=== PATIENT | female | born 1950 | race Caucasian/White ===

== ENCOUNTER 2018-02-18 20:00 | Emergency (ER) | payer MEDICARE ==
[~2018-02-18] VITALS: Ht 170.2 cm; Wt 79.4 kg
[~2018-02-18 20:00] MED LIST: ATOR20TA PO; CITA20TA9 PO; DILT180C PO; FAMO20TA5 PO; INSU100V5 IJ; INSU100V8 SQ; LEVO88TA5 PO
[2018-02-18 20:25] VITALS: BP 173/74
[2018-02-18] MEDS ORDERED: TRIPLE ANTIBIOTIC OINTMENT TP ONE (20:42)
[2018-02-18 21:20] LABS: BILIRUBIN,URINE NEGATIVE (NEGATIVE); UROBILINOGEN,URINE NORMAL (NEGATIVE)
--- NOTE | 2018-02-18 21:20 | ER.PDOC ---
General Chief Complaint: General Complaint Stated Complaint: HIGH BLOOD SUGAR TRAVEL OUT OF US: Yes Time seen by MD: 21:00 Source: patient, family Exam Limitations: no limitations History of Present Illness Initial Comments 67 year old white female with high blood sugar readings. Claims that she is under stress from numerous phone calls that she is getting. Blood sugar runs around 200-210. No fever, no nausea and no vomiting. Timing/Duration: 24 hours Severity: mild Associated Symptoms: other (disoriented) Allergies: Coded Allergies: No Known Allergies (Unverified , 07/29/15) Home Meds Reported Medications Levothyroxine Sodium (LEVOTHYROXINE SODIUM) 88 Mcg Tablet, 1 TAB PO DAILY, #30 TAB 5 Refills 07/29/15 Insulin Glargine,Hum.rec.anlog (LANTUS) 100 Unit/1 Ml Vial, 25 UNIT SQ BID, VIAL 07/29/15 Insulin Regular, Human (HUMULIN R) 100 Unit/1 Ml Vial, 1 UNIT IJ ACHS PRN for HYPERGLYCEMIA, VIAL 07/29/15 Famotidine (FAMOTIDINE) 20 Mg Tablet, 20 MG PO DAILY, TABLET 07/29/15 Diltiazem Hcl (DILTIAZEM 24HR ER) 180 Mg Cap.er.24h, 1 CAP PO DAILY, #30 CAP 5 Refills 07/29/15 Citalopram Hydrobromide (CELEXA) 20 Mg Tablet, 1 TAB PO DAILY, #90 TAB 3 Refills 07/29/15 Atorvastatin 20MG (LIPITOR 20MG) 20 Mg Tablet, 1 TAB PO DAILY, #90 TAB 1 Refill 07/29/15 Past Medical History Medical History: diabetes, hypertension Surgical History: hysterectomy LMP (females 10-50): hysterectomy Social History Smoking: non-smoker Alcohol Use: none Drug Use: none Review of Systems Constitutional: weakness EENTM: no symptoms reported Respiratory: no symptoms reported Cardiovascular: no symptoms reported Gastrointestinal: no symptoms reported Genitourinary: other (foul smelling urine) Musculoskeletal: no symptoms reported Skin: no symptoms reported Psychiatric/Neurological: anxiety, other (disoriented) Hematologic/Lymphatic: no symptoms reported Immunological/Allergic: no symptoms reported Physical Exam General Appearance: No Apparent Distress, WD/WN EENT: eyes nml inspection, nml ENT inspection, pharynx nml Neck: Non-Tender, Full Range of Motion, Supple, Normal Inspection Respiratory: chest non-tender, lungs clear, normal breath sounds, no respiratory distress, no accessory muscle use CVS: reg rate & rhythm, no murmur, no gallop, pulses nml, nml capillary refill Gastrointestinal: Normal Bowel Sounds, No Organomegaly, No Pulsatile Mass, Non Tender Back: Normal Inspection, No CVA Tenderness Extremities: Normal Range of Motion, Non-Tender, Normal Inspection, No Pedal Edema 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: 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 NML as Tested, No Motor/Sensory Deficits, Alert, Normal Mood/Affect, Oriented x 3 Skin: Normal Color, Warm/Dry Lymphatic: No Adenopathy Results/Orders Results/Orders Laboratory Tests Test 02/18/18 00:00 Urine Collection Type UNKNOWN Urine Color ZARI (YELLOW) Urine Appearance CLOUDY (CLEAR) Urine Bilirubin NEGATIVE MG/DL (NEGATIVE) Urine Ketones NEGATIVE (NEGATIVE) Urine Specific [place] 1.015 (1.005-1.035) Urine pH 5 (5.0-6.0) Urine Protein 30 mg/dL (NEGATIVE) Urine Urobilinogen NORMAL (NEGATIVE) Urine Nitrate NEGATIVE (NEGATIVE) Urine Leukocyte Esterase 25 /uL TRACE (NEGATIVE) Urine Blood 250 4+ (NEGATIVE) Urine RBC TNTC RBC/HPF (NONE SEEN) Urine WBC 5-10 WBC/HPF (0-2) Urine Squamous Epithelial Cells FEW #/HPF (FEW) Urine Bacteria FEW (NONE SEEN) Urine Glucose NORMAL (NEGATIVE) Course Sepsis Screening Results: Posi: POSITIVE SEPSIS RISK Vitals & review Data Vital Sign - Last 24 Hours 02/18/18 02/18/18 02/18/18 20:20 20:20 20:25 Temp 100.5 100.5 100.5 Pulse 98 98 98 Resp 20 18 20 B/P (MAP) 173/74 (107) Pulse Ox 95 95 O2 Delivery Room Air Room Air Laboratory Tests Test 02/18/18 00:00 Urine Collection Type UNKNOWN Urine Color ZARI Urine Appearance CLOUDY Urine Bilirubin NEGATIVE MG/DL Urine Ketones NEGATIVE Urine Specific [place] 1.015 Urine pH 5 Urine Protein 30 mg/dL Urine Urobilinogen NORMAL Urine Nitrate NEGATIVE Urine Leukocyte Esterase 25 /uL TRACE Urine Blood 250 4+ Urine RBC TNTC RBC/HPF Urine WBC 5-10 WBC/HPF Urine Squamous Epithelial Cells FEW #/HPF Urine Bacteria FEW Urine Glucose NORMAL Departure Time of Disposition: 21:35 Disposition: 01 HOME, SELF-CARE Impression: Primary Impression: Urinary tract infection Qualified Codes: N30.00 - Acute cystitis without hematuria Condition: Stable Referrals: GIGI BURR MD (PCP) PRIMARY CARE PROVIDER Additional Instructions: Maintain po intake RTER prn Follow up PCP Cranberry juice Macrodantin Duration or Time Spent with Pa: 30 DANIELLA SOTELO MD February 18, 2018 21:20
[2018-02-18 21:27] LABS: APPEARANCE,URINE CLOUDY (CLEAR); UA COLOR AMBER (YELLOW)
[2018-02-18] MEDS ORDERED: MACROBID PO STA (21:34)
[2018-02-18] MEDS ORDERED: MACROBID ONE (21:37)
[2018-02-18 22:00] VITALS: BP 173/74
== END 2018-02-18 21:54 | disposition home or self-care (01) ==
LOC: ER 20:00
DX: N39.0 Urinary tract infection, site not specified (principal); E11.65 Type 2 diabetes mellitus with hyperglycemia; F41.9 Anxiety disorder, unspecified; I10 Essential (primary) hypertension; Z79.4 Long term (current) use of insulin; Z90.710 Acquired absence of both cervix and uterus; Z79.899 Other long term (current) drug therapy
CPT/HCPCS: 81000; 82948; 87086; 99284

== ENCOUNTER 2019-11-29 21:04 | Emergency (ER) | payer MEDICARE ==
[~2019-11-29] VITALS: Ht 170.2 cm; Wt 79.4 kg
[2019-11-29] VITALS (8 sets, daily range): BP systolic 105–167; BP diastolic 52–80
[~2019-11-29 21:04] MED LIST changes: -DILT180C PO; +[UNRECOGNIZED DRUG - CODE] PO
--- NOTE | 2019-11-29 21:05 | NUR ---
ARRIVAL PATIENT PRESENTS VIA AMBULANCE WITH REPORTS OF AMS PER EMS. EMS REPORT THAT PATIENT WAS FOUND LYING ON THE BATHROOM FLOOR BY HER . EMS REPORT THAT STATED HE WAS ASLEEP AND DOES NOT KNOW HOW LONG SHE WAS ON THE FLOOR.
--- NOTE | 2019-11-29 21:15 | NUR ---
C-COLLAR MD CATIA AT BEDSIDE. C-COLLAR REMOVED BY DR BARDALES.
--- NOTE | 2019-11-29 21:28 | ER.PDOC ---
General Chief Complaint: Requesting Medical Care Stated Complaint: ALOC Time seen by MD: 21:15 Source: patient, family Exam Limitations: clinical condition History of Present Illness Initial Comments Spouse states he heard a crash in the bathroom, pt stated she is "OK, I just bumped my head." Spouse went to check on her and found her on floor, altered mental status with confusion, unable to answer questions. No obvious trauma. Timing/Duration: 1 hour Character of AMS: confused, decreased responsiveness Usually: orientedx3 Decreased Ability to Stand: weak, cannot walk Prior symptoms/Treatment: No Similar symptoms previous, No Recenly Seen, No Treated by Doctor, No Recently Hospitalized Allergies: Coded Allergies: No Known Allergies (Unverified , 07/29/15) Home Meds Reported Medications Levothyroxine Sodium (LEVOTHYROXINE SODIUM) 88 Mcg Tablet, 1 TAB PO DAILY, #30 TAB 5 Refills 07/29/15 Insulin Glargine,Hum.rec.anlog (LANTUS) 100 Unit/1 Ml Vial, 25 UNIT SQ BID, VIAL 07/29/15 Insulin Regular, Human (HUMULIN R) 100 Unit/1 Ml Vial, 1 UNIT IJ ACHS PRN for HYPERGLYCEMIA, VIAL 07/29/15 Famotidine (FAMOTIDINE) 20 Mg Tablet, 20 MG PO DAILY, TABLET 07/29/15 Diltiazem Hcl (DILTIAZEM 24HR ER) 180 Mg Cap.er.24h, 1 CAP PO DAILY, #30 CAP 5 Refills 07/29/15 Citalopram Hydrobromide (CELEXA) 20 Mg Tablet, 1 TAB PO DAILY, #90 TAB 3 Refills 07/29/15 Atorvastatin 20MG (LIPITOR 20MG) 20 Mg Tablet, 1 TAB PO DAILY, #90 TAB 1 Refill 07/29/15 Past Medical History Medical History: diabetes, GERD, high cholesterol, hypertension Surgical History: hysterectomy Social History Drug Use: none Review of Systems Constitutional: no symptoms reported Eyes: no symptoms reported Ears, Nose, Mouth, Throat: no symptoms reported Respiratory: no symptoms reported Cardiovascular: no symptoms reported Gastrointestinal: no symptoms reported Genitourinary: no symptoms reported Musculoskeletal: no symptoms reported Skin: no symptoms reported Psychiatric/Neurological: no symptoms reported Endocrine: no symptoms reported Hematologic/Lymphatic: no symptoms reported Physical Exam General Appearance: mild distress, other (Somnolent but arousable.) HEENT: no apparent trauma, EOM's intact, no nystagmus, PERRL, ENT inspection nml, pharynx nml, airway intact, oral exam nml Neuro/Psych: abnml response to command Cranial Nerves: nml as tested Peripheral Exam: motor nml, sensation nml, reflexes nml Neck: supple, non-tender, no carotid bruit Respiratory: no resp distress, breath sounds nml CVS: reg rate & rhythm, heart sounds nml Abdomen: non-tender, no organomegaly, no distention Skin: color nml, no rash, warm/dry Extremities: non-tender, nml ROM, no pedal edema Results/Orders Results/Orders Orders - GIGI BARDALES MD Cbc With Auto Diff (11/29/19 21:25) Comprehensive Metabolic Panel (11/29/19 21:25) Creatine Kinase (11/29/19 21:25) Creatine Kinase Mb (11/29/19 21:25) PT (11/29/19 21:25) Partial Thromboplastin Time. (11/29/19 21:25) Xr Chest 1v (11/29/19 21:25) Urinalysis (11/29/19 21:25) Ekg-Routine (11/29/19 21:25) Troponin I (11/29/19 21:25) Saline Lock (11/29/19 21:25) Ct Head Wo Contrast (11/29/19 21:25) Promethazine Hcl (Phenergan) (11/29/19 22:19) 0.9 % Sodium Chloride (Ns 25ml) (11/29/19 22:21) 0.9 % Sodium Chloride (Ns 1000ml) (11/29/19 23:00) Vital Signs Date Time Temp Pulse Resp B/P (MAP) Pulse Ox O2 Delivery O2 Flow Rate FiO2 11/29/19 21:05 98.6 80 18 11/29/19 21:05 98.6 80 16 153/59 (90) 96 Room Air 11/29/19 21:05 98.6 80 16 96 Administered Medications Medications (Trade) Dose Ordered Sig/Lianet Route PRN Reason Start Time Stop Time Status Last Admin Dose Admin Promethazine HCl (Phenergan) 12.5 mg STAT STAT IV 11/29/19 22:19 11/29/19 22:20 UNV 11/29/19 22:25 12.5 MG Sodium Chloride 1,000 ml @ 0 mls/hr Q0M ONCE IV 11/29/19 23:00 11/29/19 23:01 UNV 11/29/19 23:10 1,000 MLS/HR Laboratory Tests Test 11/29/19 21:34 White Blood Count 10.6 10^3/uL (4.5-11.0) Red Blood Count 4.17 10^6/uL (4.00-5.20) Hemoglobin 12.6 g/dL (12.0-15.0) Hematocrit 37.5 % (36.0-46.0) Mean Corpuscular Volume 89.9 fL (78-100) Mean Corpuscular Hemoglobin 30.2 pg (26-34) Mean Corpuscular Hemoglobin Concent 33.6 g/dL (33-36.5) Red Cell Distribution Width 13.0 % (11.5-14.5) Platelet Count 226 10^3/uL (150-400) Mean Platelet Volume 10.6 fL (7.8-11.0) Neutrophils (%) (Auto) 70.8 % (41.0-85.0) Lymphocytes (%) (Auto) 13.0 % (24.0-44.0) L Monocytes (%) (Auto) 15.2 % (5.0-12.0) H Neutrophils # (Auto) 7.5 10^3/uL (1.8-7.7) Lymphocytes # (Auto) 1.38 10^3/uL1 (1.0-4.8) Monocytes # (Auto) 1.6 10^3/uL (0.3-0.8) H Absolute Immature Granulocyte (auto 0.07 10^3 u/L (0-2) Absolute Eosinophils (auto) 0.0 10^3/uL (0.0-0.2) Immature Granulocytes % 0.70 % (0.00-0.50) H Eosinophils % 0.0 % (0.0-5.0) Basophils % 0.3 % (0.0-0.2) H Basophils # 0.0 10^3/uL (0.0-0.1) Prothrombin Time 10.7 SEC (9.4-11.5) Prothrombin Time INR (Non-Therap) 1.1 Activated Partial Thromboplast Time 25.6 SEC (24.67-30.72) Sodium Level 130 mmol/L (132-145) #L Potassium Level 3.8 mmol/L (3.6-5.2) Chloride Level 98.0 mmol/L (96-109) Carbon Dioxide Level 24.1 mmol/L (20.0-32) Anion Gap 11.7 Blood Urea Nitrogen 18 mg/dL (7-18) Creatinine 1.23 mg/dL (0.59-1.40) Estimated GFR () 52.2 (>/=60) Est GFR (CKD-EPI)(Non-Afr [place]) 43.2 (>/=60) BUN/Creatinine Ratio 14.0 Glucose Level 93 mg/dL (70-110) Calcium Level 8.5 mg/dL (8.4-10.5) Total Bilirubin 0.5 mg/dL (0.2-1.0) Aspartate Amino Transferase (AST) 36 U/L (0-35) H Alanine Aminotransferase (ALT) 14 U/L (12-78) Alkaline Phosphatase 99 U/L (50-136) Total Creatine Kinase 56 U/L (26-192) Creatine Kinase MB 0.7 ng/mL (0.5-3.6) Troponin I < 0.02 ng/mL (0.00-0.05) Total Protein 6.1 g/dL (6.4-8.2) L Albumin 3.1 g/dL (3.4-5.0) L Globulin 3.0 EKG/XRAY/CT/US XRAY: chest XRAY Comments: normal CT Comments: L subdural hematoma with mild midline shift. Departure Time of Disposition: 23:37 Disposition: 70 DISC/XFER TO [facility] Impression: Primary Impression: Subdural hematoma Condition: Stable If Transfer, List PT Destinati: [facility] Referrals: GIGI BURR MD (PCP) PRIMARY CARE PROVIDER Duration or Time Spent with Pa: GIGI WALTERS MD Nov 29, 2019 21:28
--- NOTE | 2019-11-29 21:38 | PCM.EKG ---
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
--- NOTE | 2019-11-29 21:48 | NUR ---
CT PATIENT IS BEING TAKEN TO CT. NO SIGNS OF DISTRESS NOTED.
[2019-11-29 21:51] LABS: BASOPHIL % 0.3 % (0.0-0.2); LYMPHOCYTES # 1.38 10^3/uL1 (1.0-4.8); MEAN CORP HGB 30.2 pg (26-34); MONOCYTES # 1.6 10^3/uL (0.3-0.8); MONOCYTES % 15.2 % (5.0-12.0); NEUTROPHIL # 7.5 10^3/uL (1.8-7.7); NEUTROPHILS % 70.8 % (41.0-85.0); PLATELET COUNT 226 10^3/uL (150-400)
--- NOTE | 2019-11-29 22:00 | NUR ---
CT RN CALLED TO CT DUE TO PATIENT VOMITING AND INABLITY TO DO CT AT THIS TIME. PATIENT TAKEN BACK TO ER 2 AND MD CATIA NOTIFIED.
[2019-11-29 22:04] LABS: ALANINE AMINOTRANSFERASE(ML) 14 U/L (12-78); ALKALINE PHOSPHATASE 99 U/L (50-136); ASPARTATE AMINO TRANSFERASE 36 U/L (0-35); CALCIUM 8.5 mg/dL (8.4-10.5); CARBON DIOXIDE 24.1 mmol/L (20.0-32); GLUCOSE 93 mg/dL (70-110)
[2019-11-29] MEDS ORDERED: PHENERGAN IV STA (22:19)
[2019-11-29] MEDS ORDERED: NS 25ML 25 ML IV ONE (22:21)
[2019-11-29] MEDS ORDERED: PHENERGAN ONE (22:21)
--- NOTE | 2019-11-29 22:50 | NUR ---
CT PATIENT IS BEING TAKEN TO CT.
[2019-11-29] MEDS ORDERED: NS 1000ML 1,000 ML IV ONE (23:00)
--- NOTE | 2019-11-29 23:03 | NUR ---
CT PATIENT IS BACK FROM CT.
[2019-11-29] MEDS ORDERED: NS 1000ML 1,000 ML ONE (23:04)
--- NOTE | 2019-11-29 23:17 | DIREP ---
PROCEDURE:CHEST 1 VIEW COMPARISON:None. INDICATIONS:Altered mental status, fall FINDINGS: LUNGS/PLEURA:Blunting of left costophrenic angle VASCULATURE:Normal. Unremarkable pulmonary vasculature. CARDIAC:Normal. No cardiac silhouette abnormality or cardiomegaly. MEDIASTINUM: There is atherosclerotic aortic calcium. BONES:Normal. No fracture or visible bony lesion. OTHER:Negative. CONCLUSION: 1. Blunting of left costophrenic angle suggesting a small left pleural effusion. Dictated by: Anuj Ashley Jr. on 11/29/2019 at 11:15 PM
--- NOTE | 2019-11-29 23:22 | DIREP ---
PROCEDURE:CT HEAD OR BRAIN W/O CONTRAST COMPARISON:None. INDICATIONS:altered mental status, fall TECHNIQUE:CT images were created without intravenous contrast. FINDINGS: VENTRICLES:The ventricles are normal in size and configuration. CEREBRUM:Normal cerebral morphology with appropriate melgoza white matter differentiation. CEREBELLUM:Negative. BRAINSTEM:Negative. BASAL CISTERNS:Negative. HEMORRHAGE:1 cm thick left subdural hematoma with 4-5 mm [id number] midline shift. There is also blood along the tentorium MASS LESION:No ACUTE INFARCT:No SKULL:Normal. SINUSES:Normal. OTHER:None CONCLUSION: 1. Acute-appearing Left-sided subdural hematoma with mild midline shift. Dr. Tafoya is aware Dictated by: Anuj Ashley Jr. on 11/29/2019 at 11:18 PM
--- NOTE | 2019-11-29 23:28 | NUR ---
[facility] DR BARDALES ON PHONE WITH [facility].
[2019-11-30] VITALS: BP 158/68
[2019-11-30 00:15] VITALS: BP 164/63
[2019-11-30 00:30] VITALS: BP 157/55
--- NOTE | 2019-11-30 00:30 | NUR ---
REPORT REPORT GIVEN TO MICHELLE FRAGA WITH [facility]. ALL QUESTIONS ANSWERED. PATIENT STABLE AT TIME OF HANDOFF.
--- NOTE | 2019-11-30 00:48 | NUR ---
REPORT REPORT GIVEN TO NIYAH HYLTON AT [facility]. ALL QUESTIONS ANSWERED.
== END 2019-11-30 00:30 | disposition other institution (70) ==
LOC: EDBD 21:04 → ER 21:04
DX: S06.5X9A Traumatic subdural hemorrhage with loss of consciousness of unspecified duration, initial encounter (principal); E78.00 Pure hypercholesterolemia, unspecified; K21.9 Gastro-esophageal reflux disease without esophagitis; I10 Essential (primary) hypertension; E11.9 Type 2 diabetes mellitus without complications; R41.0 Disorientation, unspecified; Z79.4 Long term (current) use of insulin; Z79.899 Other long term (current) drug therapy; Z90.710 Acquired absence of both cervix and uterus; W22.8XXA Striking against or struck by other objects, initial encounter; Y93.89 Activity, other specified; Y92.89 Other specified places as the place of occurrence of the external cause; Y99.8 Other external cause status
CPT/HCPCS: 36415; 70450; 71045; 80053; 82550; 82553; 84484; 85025; 85610; 85730; 93005; 96361; 96374; 99285; J2550; J7030

== ENCOUNTER → 2020-01-06 | Outpatient (CLI) | payer MEDICARE ==
--- NOTE | 2020-01-06 09:53 | DIREP ---
PROCEDURE:CT HEAD WITHOUT CONTRAST TECHNIQUE:Axial cuts were obtained through the head, without intravenous contrast material. The images were viewed at brain and bone settings. COMPARISON:[facility], CT, CT HEAD BRAIN W/O CONTRAST, 11/29/2019, 09:59 PM. INDICATIONS:FOLLOW UP ON SUBDURAL HOMORRHAGE FINDINGS: VENTRICLES:Normal. CEREBRUM:Hyperdense meninges frontoparietal left, deep to the craniotomy site. Scant extra-axial fluid deep to the craniotomy site 6 mm in depth. No significant cortical effacement. No shift of the midline. CEREBELLUM:Normal. BRAINSTEM:Normal. SKULL:Left frontoparietal craniotomy SINUSES:Normal. OTHER:Negative. CONCLUSION:Status post left frontoparietal craniotomy and evacuation of subdural. No new hemorrhage. 6 mm extra-axial fluid collection at the site of the craniotomy without shift of the midline . Dictated by: Mellissa Quiroga MD on 01/06/2020 at 09:47 AM
== END | disposition home or self-care (01) ==
LOC: RAD 09:08
PROVIDERS: ATTEND Neurological Surgery
DX: I62.00 Nontraumatic subdural hemorrhage, unspecified (principal)
CPT/HCPCS: 70450

== ENCOUNTER → 2020-02-04 | Outpatient (CLI) | payer MEDICARE ==
[2020-02-04 18:22] LABS: BASOPHIL % 0.3 % (0.0-0.2); EOSINOPHIL # 0.1 10^3/uL (0.0-0.2); EOSINOPHIL % 0.9 % (0.0-5.0); LYMPHOCYTES # 2.13 10^3/uL1 (1.0-4.8); LYMPHOCYTES % 27.4 % (24.0-44.0); MONOCYTES # 0.8 10^3/uL (0.3-0.8); NEUTROPHIL # 4.8 10^3/uL (1.8-7.7); NEUTROPHILS % 61.1 % (41.0-85.0); PLATELET COUNT 199 10^3/uL (150-400); RED CELL DISTRIBUTION WIDTH 14.1 % (11.5-14.5)
[2020-02-05 11:04] LABS: CALCIUM 6.1 mg/dL (8.4-10.5); CARBON DIOXIDE 27.6 mmol/L (20.0-32)
== END | disposition home or self-care (01) ==
LOC: NPLAB 16:46
PROVIDERS: ATTEND Nurse Practitioner
DX: R19.7 Diarrhea, unspecified (principal); E11.65 Type 2 diabetes mellitus with hyperglycemia; E03.9 Hypothyroidism, unspecified; R10.9 Unspecified abdominal pain
CPT/HCPCS: 36415; 80053; 82150; 82272; 83036; 83630; 83690; 84439; 84443; 85025; 85651; 87045; 87177

== ENCOUNTER → 2020-06-22 | Outpatient (CLI) | payer MEDICARE ==
--- NOTE | 2020-06-22 15:06 | DIREP ---
PROCEDURE:BONE DENSITY PERIPHERAL COMPARISON:None. INDICATIONS:SCREEN FOR OSTEOPOROSIS Z13.820 TECHNIQUE:A dual photon bone densitometry was performed in the lumbar spine and in both hips. FINDINGS:The bone density is measured from L1 through L4 is 1.238 grams/cm2. The standard deviation of the T-score is + 0.3. The bone density in the right femoral neck is 0.828 grams/cm2. The standard deviation of the T-score is-1.5. The bone density in the left femoral neck is 0.833 grams/cm2. The standard deviation T-score is-1.5. Based upon these values the patient has mild osteopenia. The 10 year FRAX probability is as follows: The patient has a 1.5% chance of a insufficiency hip fracture and a 10.1% chance of a major osteoporotic fracture. CONCLUSION:Osteopenia. Ten year FRAX probability as above. Dictated by: Raymond Miramontes MD on 06/22/2020 at 03:03 PM
--- NOTE | 2020-06-23 08:58 | DIREP ---
PROCEDURE:Digital Screening Mammogram TECHNIQUE:MLO and CC digital images of each breast are provided. Computer Assisted Detection (CAD) was utilized. COMPARISON:[facility], 06/17/2019, 06/15/2018, 05/12/2017, 04/04/2016.. INDICATIONS:SCREENING BREAST COMPOSITION:There are scattered areas of fibroglandular density. FINDINGS:There are no grouped microcalcifications, masses, or architectural distortions to suggest malignancy. There is no significant change as compared with the previous examination(s). IMPRESSION:No mammographic evidence of malignancy. RECOMMENDATIONS:Routine Screening Mammography per [employer] guidelines. OVERALL FINAL ASSESSMENT:BI-RADS 1 - Negative Mammogram Note: This facility participates in a mammography screening patient reminder system. Dictated by: Estrada Robison M.D. on 06/23/2020 at 08:50 AM
== END | disposition home or self-care (01) ==
LOC: RAD 13:10
PROVIDERS: ATTEND Nurse Practitioner Adult Health
DX: Z12.31 Encounter for screening mammogram for malignant neoplasm of breast (principal); Z13.820 Encounter for screening for osteoporosis; M85.88 Other specified disorders of bone density and structure, other site
CPT/HCPCS: 77067; 77080

== ENCOUNTER → 2020-09-14 | Outpatient (CLI) | payer MEDICARE ==
--- NOTE | 2020-09-14 16:50 | DIREP ---
PROCEDURE:XRAY HAND MIN 3 VW-RT COMPARISON:None. INDICATIONS:M25.541 PAIN IN JOINTS OF RIGHT HAND FINDINGS: BONES:No fractures demonstrated. Osteopenia is noted. JOINTS:Fairly severe marginal osteophyte formation involving the 1st IP joint as well as the 2nd, 3rd, and 5th DIP joints is noted consistent with osteoarthritis. Mild osteoarthrosis of the 1st CMC joint is noted. SOFT TISSUES:Normal. OTHER:No additional findings. CONCLUSION: 1. Osteopenia. 2. Fairly advanced osteoarthritis involving the IP joints. Dictated by: Dago Penaloza M.D. on 09/14/2020 at 04:47 PM
== END | disposition home or self-care (01) ==
LOC: RAD 15:47
PROVIDERS: ATTEND Internal Medicine
DX: M19.041 Primary osteoarthritis, right hand (principal); M25.541 Pain in joints of right hand; M85.841 Other specified disorders of bone density and structure, right hand
CPT/HCPCS: 73130-RT

== ENCOUNTER → 2021-06-27 | Outpatient (CLI) | payer MEDICARE ==
--- NOTE | 2021-06-27 11:45 | DIREP ---
PROCEDURE:Digital Screening Mammogram TECHNIQUE:MLO, CC, and XCCL digital images of each breast are provided. Computer Assisted Detection (CAD) was utilized. COMPARISON:[facility], , MAMMO BILATERAL SCREENING, 06/22/2020, 01:55 PM. INDICATIONS:SCREENING BREAST COMPOSITION:Scattered areas fibroglandular density. FINDINGS:There are no grouped microcalcifications, masses, or architectural distortions to suggest malignancy. There is no significant change as compared with the previous examination(s). IMPRESSION:No mammographic evidence of malignancy. RECOMMENDATIONS:Routine Screening Mammography per [employer] guidelines. OVERALL FINAL ASSESSMENT:BI-RADS 1 - Negative Mammogram Note: This facility participates in a mammography screening patient reminder system. Dictated by: Estrada Robison M.D. on 06/27/2021 at 11:42 AM
== END | disposition home or self-care (01) ==
LOC: RAD 11:00
PROVIDERS: ATTEND Internal Medicine
DX: Z12.31 Encounter for screening mammogram for malignant neoplasm of breast (principal); N64.89 Other specified disorders of breast
CPT/HCPCS: 77067

== ENCOUNTER → 2021-08-30 | Outpatient (CLI) | payer MEDICARE | END | disposition home or self-care (01) | LOC: NPLAB 16:05 | PROVIDERS: ATTEND Internal Medicine | DX: Z20.822 Contact with and (suspected) exposure to COVID-19 (principal) | CPT/HCPCS: 87426 ==

== ENCOUNTER → 2022-02-18 | Outpatient (CLI) | payer MEDICARE ==
--- NOTE | 2022-02-18 14:16 | DIREP ---
PROCEDURE:BONE DENSITY PERIPHERAL INDICATIONS:ENCOUNTER FOR SCREENIGN FOR OSTEOPOROSIS COMPARISON:[facility], , BONE DENSITY PERIPHERAL, 06/22/2020, 01:46 PM. FINDINGS: SUMMARY Region BMD(g/cm^2) T-Score change from prior exam L1 through L41.2020.1 Left proximal femur0.760-2.0 Total hip left0.754-2.0 Right proximal femur0.746-2.1 Total hip right0.751-2.0 CONCLUSION:Osteopenia Major Osteoporotic 10 Year Fracture Risk = 13.2% Hip Fracture 10 Year Risk = 3.1 % SUGGESTED RECOMMENDATIONS: Normal & Osteopenia:Consideration should be given to use of calcium supplementation, daily multiple vitamins and adequate exercise, as preventive measures against osteoporosis, if clinically indicated. Osteoporosis & Severe Osteoporosis:In addition to the above, consideration should be given to medical therapy against osteoporosis, if clinically indicated. Dictated by: Everett Flynn DO on 02/18/2022 at 02:10 PM
== END | disposition home or self-care (01) ==
LOC: BD 12:49
PROVIDERS: ATTEND Internal Medicine
DX: M85.88 Other specified disorders of bone density and structure, other site (principal)
CPT/HCPCS: 77080